=== PATIENT | female | born 1960 | race Caucasian/White ===

== ENCOUNTER 2018-01-24 15:10 | Inpatient (IN) | payer OTHER ==
[~2018-01-24] VITALS: Ht 160 cm; Wt 101.2 kg
--- NOTE | 2018-01-24 15:46 | ED GENERAL ADULT ---
History of Present Illness General Chief Complaint: Lower Extremity Problems Stated Complaint: LFT LEG CLOT SENT FROM US Source: patient, MD call in Exam Limitations: no limitations Allergies Coded Allergies: No Known Allergies (09/03/15) Triage Note: 58F W INTERMITTENT FEVERS, HEADACHES, AND BODY ACHES FOR A FEW DAYS WHICH HAVE RESOLVED, HAD LYME WORK UP WHICH WAS NEGATIVE AND CAME IN TODAY FOR FURTHER WORK UP DUE TO SWELLING AND TIGHTNESS IN LEGS. BILAT U/S SHOWED DVT TO LLE, THOUGH WARMTH AND ERYTHEMA NOTED TO RLE. DENIES DIFF BREATHING Triage Nurses Notes Reviewed? yes Onset: Gradual Duration: day(s): Timing: constant HPI: 58-year-old female with no known past medical history sent in by Dr. Patel for admission. Patient reports that little over a week ago she had isolated fevers to 102 Fahrenheit. Her fevers had self resolved after approximately 24 hours. A few days later she subsequently developed headaches and arthralgias. The headaches have since self resolved but she still has persistent arthralgias that are worse from the knees down. She was seen by an urgent care with Lyme testing that was sent, and she was placed on doxycycline which she has been taking. Lyme testing came back negative. Patient states that Dr. Patel plan to send her for repeat Lyme testing. She has not noticed any insect bites or rashes. Additionally she has had erythema and edema to the bilateral lower extremities with right greater than left. She was sent for an outpatient ultrasound today that showed a left lower extremity DVT. She has no prior history of blood clots , no recent travel or surgeries, no hormone use. She denies chest pain or shortness of breath. (Cindy Melchor) Vital Signs & Intake/Output Vital Signs & Intake/Output Vital Signs Date Time Temp Pulse Resp B/P B/P Pulse O2 O2 Flow FiO2 Mean Ox Delivery Rate 01/247 98.7 92 18 146/69 99 Room Air 01/24 1900 97.4 89 18 124/60 98 Room Air 01/24 1537 97.0 98 18 118/82 97 Room Air Reconcile Medications Albuterol Sulfate (Proair Hfa) 90 MCG HFA.AER.AD 2 PUF INH AD PRN RESP. ( Reported) Atorvastatin Calcium 20 MG TABLET 1 TAB PO DAILY CHOLESTEROL (Reported) Diclofenac Potassium 50 MG TABLET 1 TAB PO BID PAIN/INFLAMMATION (Reported) Doxycycline Hyclate 100 MG CAPSULE 1 CAP PO BID ABX (Reported) Empagliflozin (Jardiance) 25 MG TABLET 1 TAB PO DAILY DM (Reported) Gemfibrozil 600 MG TABLET 1 TAB PO BID CHOLESTEROL (Reported) Ketoconazole 2 % CREAM..G. 1 YASMIN TOP BID PRN SKIN (Reported) apply to affected area(s) Letrozole 2.5 MG TABLET 1 TAB PO DAILY CANCER (Reported) Lisinopril/Hydrochlorothiazide (Lisinopril-Hctz 20-12.5 MG Tab) 20 MG-12.5 MG TABLET 1 TAB PO DAILY BP (Reported) Metformin HCl 850 MG TABLET 1 TAB PO BID DM (Reported) Metoprolol Succinate 50 MG TAB.ER.24H 1 TAB PO BID HEART/BP (Reported) (Paul RAMIREZ,Nura) Past History Travel History Traveled to [place] past 21 day No Medical History Any Pertinent Medical History? none Surgical History Surgical History: non-contributory Psychosocial History What is your primary language Sudanese Tobacco Use: Never used Family History Hx Contributory? No (Cindy Melchor) Review of Systems Review of Systems Constitutional: Reports: see HPI. EENTM: Reports: no symptoms. Respiratory: Reports: no symptoms. Cardiovascular: Reports: no symptoms. GI: Reports: no symptoms. Genitourinary: Reports: no symptoms. Musculoskeletal: Reports: see HPI. Skin: Reports: see HPI. Neurological/Psychological: Reports: no symptoms. Hematologic/Endocrine: Reports: see HPI. Immunologic/Allergic: Reports: no symptoms. All Other Systems: Reviewed and Negative (Cindy Melchor) Physical Exam Physical Exam General Appearance: well developed/nourished, no apparent distress, alert, awake Comments: Gen.: Well-nourished, well-developed, no acute distress. Head: Normocephalic, atraumatic. Eyes: Normal inspection bilaterally Ears: Normal inspection bilaterally Nose: Normal inspection Throat: Normal inspection Neck: Normal inspection, no cervical lymphadenopathy, supple Lungs: clear to auscultation bilaterally, normnal breath sounds Heart: regular rate and rhythm Abdomen: soft and non-tender Extremities: Bilateral lower extremity edema with erythema, right is worse than left, bilateral lower extremities are neurovascularly intact with distal pulses that are audible with Doppler Neurologic: alert and oriented x3, steady gait Skin: warm and dry Psychiatric: Normal mood and affect, no apparent delusions or hallucinations, behavior appropriate Core Measures ACS in differential dx? No CVA/TIA Diagnosis: No Sepsis Present: No Sepsis Focused Exam Completed? No (Cindy Melchor) Progress Differential Diagnoses I considered the following diagnoses in my evaluation of the patient: [ Cellulitis versus sepsis versus Lyme] Initial ED EKG: none (Kendra SALDAÑA,Cindy) Plan of Care: Orders Procedure Date/time Status Consistent Carbohydrate 3 01/25 B Active CBC WITHOUT DIFFERENTIAL 01/25 06 Active BASIC ELECTROLYTES PLUS BUN&CR 01/25 06 Active PARTIAL THROMBOPLASTIN TIME 01/25 0100 Active Saline Lock 01/24 2237 Active Pathway - chart 01/24 2237 Active House Staff 01/24 2237 Active Code Status 01/24 2237 Active Patient Data 01/24 193 Active ED Holding Orders 01/24 184 Active Admit to inpatient 01/24 1845 Active Vital Signs 01/24 184 Active Code Status 01/24 1845 Complete LYME TITRE 01/24 1542 Active Intake & Output 01/24 1539 Active BLOOD CULTURE 01/24 1532 Active PARTIAL THROMBOPLASTIN TIME 01/24 1532 Complete PROTHROMBIN TIME 01/24 1532 Complete LACTIC ACID 01/24 1532 Complete COMPREHENSIVE METABOLIC PANEL 01/24 1532 Complete CBC WITHOUT DIFFERENTIAL 01/24 1532 Complete Vital Signs 01/24 UNK Active Intake & Output 01/24 UNK Active FingerStick- Glucose 01/24 UNK Active Current Medications Sig/Mayelin Start time Last Medication Dose Stop Time Status Admin Insulin Aspart 0 TIDAC 01/25 0800 UNVr (NovoLOG) Acetaminophen 650 MG Q6P PRN 01/24 2245 UNVr (Tylenol) Acetaminophen 1,000 MG Q6P PRN 01/24 2245 UNVr (Ofirmev) Melatonin 5 MG AT BEDTIME PRN 01/24 224 UNVr (Melatonin) Polyethylene Glycol 17 GM AT BEDTIME PRN 01/24 224 UNVr (Miralax) Senna/Docusate Sodium 1 TAB AT BEDTIME PRN 01/24 224 UNVr (Senokot S) Ampicillin Sodium/ 3,000 MG Q6 01/24 1545 AC 01/24 Sulbactam Sodium 1854 (Unasyn) Sodium Chloride 100 ML (Normal Saline 0.9%) Doxycycline Hyclate 100 MG BID 01/24 1545 AC 01/24 (Vibramycin) 1855 Heparin Sodium 25,000 UNIT Q24H 01/24 1545 AC 01/24 (Porcine) 185 (Heparin) Sodium Chloride 500 ML Laboratory Tests 01/24/18 1832: Lactic Acid Cancelled 01/24/18 1555: Anion Gap 11, Estimated GFR > 60, BUN/Creatinine Ratio 47.8 H, Glucose 141 H, Lactic Acid 1.3, Calcium 10.2, Total Bilirubin 0.3, AST 17, ALT 49, Alkaline Phosphatase 155 H, Total Protein 7.2, Albumin 3.8, Globulin 3.4, Albumin/ Globulin Ratio 1.1, PT 12.3, INR 1.13, APTT 35, CBC w Diff NO MAN DIFF REQ, RBC 4.72, MCV 85.6, MCH 27.9, MCHC 32.6 L, RDW 14.6 H, MPV 7.5, Gran % 86.9 H, Lymphocytes % 10.5 L, Monocytes % 1.6 L, Eosinophils % 0.8, Basophils % 0.2, Absolute Granulocytes 9.9 H, Absolute Lymphocytes 1.2, Absolute Monocytes 0.2, Absolute Eosinophils 0.1, Absolute Basophils 0, Lyme Disease Antibody Pending Microbiology 01/24 1555 BLOOD: Blood Culture - RECD 01/24 1542 BLOOD: Blood Culture - RECD Outpatient ultrasound 1. Positive below the knee deep venous thrombosis in one of the left posterior tibial veins in the mid calf. No evidence of deep venous thrombosis above the knee. 2. No evidence of deep venous thrombosis in the right lower extremity. Labs show leukocytosis to 11 with a left shift. Discussed with Dr. Patel and will admit to general medicine. Patient started on IV heparin, IV Unasyn, and oral doxy. Dr. Patel would like to continue doxy for now to cover for Lyme. (Cindy Melchor) (Paul RAMIREZ,Nura) Departure Departure Disposition: STILL A PATIENT Condition: Stable Clinical Impression Primary Impression: DVT (deep venous thrombosis) Secondary Impressions: Cellulitis Referrals: Uriel Patel MD (PCP/Family) Departure Forms: Customer Survey General Discharge Information Admission Note Spoke With: Uriel Patel MD Documentation of Exam: Documentation of any treatments & extenuating circumstances including Concerns Regarding Discharge (functional status, medication knowledge or non-compliance, living conditions, etc.) that warrant an admission rather than observation: [IV heparin, IV antibiotics, IV fluids, serial labs, hypercoagulability workup] (Cindy Melchor) PA/WAX PATTERN REPAIRER Co-Sign Statement Statement: ED Attending supervision documentation- x I saw and evaluated the patient. I have also reviewed all the pertinent lab results and diagnostic results. I agree with the findings and the plan of care as documented in the PA's/WAX PATTERN REPAIRER's documentation. At admission patient is hemodynamically stable no acute cardiopulmonary distress. I have reviewed the ED Record and agree with the PA's/WAX PATTERN REPAIRER's documentation. [] Additions or exceptions (if any) to the PAs/WAX PATTERN REPAIRER's note and plan are summarized below: [] (Paul RAMIREZ,Nura) Critical Care Note Critical Care Note Critical Care Time: non-applicable (Cindy Melchor)
[2018-01-24 16:07] LABS: ABSOLUTE BASOPHIL COUNT 0 /CUMM (0.0-0.2); ABSOLUTE EOSINOPHIL COUNT 0.1 /CUMM (0.0-0.7); ABSOLUTE GRANULOCYTE CT 9.9 /CUMM (1.4-6.5); ABSOLUTE LYMPH COUNT 1.2 /CUMM (1.2-3.4); ABSOLUTE MONOCYTE COUNT 0.2 /CUMM (0.10-0.60); BASOPHIL % 0.2 % (0.0-2.0); EOSINOPHIL % 0.8 % (0-5); HEMATOCRIT 40.4 % (37-47); MEAN CORPUSCULAR HGB 27.9 PG (27.0-31.0); MEAN CORPUSCULAR HGB CONC 32.6 G/DL (33.0-37.0); MEAN CORPUSCULAR VOLUME 85.6 FL (81.0-99.0); MEAN PLATELET VOLUME 7.5 FL (7.4-10.4); PLATELET COUNT 573 /CUMM (130-400); RBC DISTRIBUTION WIDTH 14.6 % (11.5-14.5); RED BLOOD CELL CT 4.72 /CUMM (4.20-5.40); WHITE BLOOD CELL COUNT 11.4 /CUMM (4.8-10.8)
[2018-01-24 16:16] LABS: PT 12.3 SEC (9.4-12.5); PTT 35 SEC (25-37)
[2018-01-24 16:21] LABS: GRANULOCYTE % 86.9 % (42.2-75.2)
--- NOTE | 2018-01-24 16:49 | RADIOLOGY REPORT ---
EXAMINATION: XR ANKLE, RIGHT CLINICAL INFORMATION: Cellulitis. Concern for osteomyelitis. COMPARISON: None TECHNIQUE: AP, lateral, and mortise views of the right ankle. FINDINGS: There is diffuse swelling around the ankle. There is no air in the soft tissues. There is no bone abnormality. No focal bone lesion or abnormal periosteal reaction. There is no fracture and no dislocation. Ankle mortise is congruent. There is a plantar calcaneal spur. IMPRESSION: Soft tissue swelling around ankle. There is no osseous abnormality. No radiographic evidence for osteomyelitis.
[2018-01-24] MEDS ORDERED: JARDIANCE25 M1 PO (18:28)
[2018-01-24] MEDS ORDERED: ATORVASTATIN CA20 M1 PO (18:28)
[2018-01-24] MEDS ORDERED: LETROZOLE2.5 M1 PO (18:28)
[2018-01-24] MEDS ORDERED: DOXYCYCLINE HY100 M2 PO (18:29)
[2018-01-24] MEDS ORDERED: GEMFIBROZIL600 M1 PO (18:29)
[2018-01-24] MEDS ORDERED: METFORMIN HCL850 M1 PO (18:29)
[2018-01-24] MEDS ORDERED: LISINOPRIL-HCT1 EACH PO (18:29)
[2018-01-24] MEDS ORDERED: DICLOFENAC POTA50 M1 PO (18:30)
[2018-01-24] MEDS ORDERED: METOPROLOL SUCC50 M2 PO (18:32)
[2018-01-24] MEDS ORDERED: KETOCONAZOLE15 GM TOP (18:34)
[2018-01-24] MEDS ORDERED: PROAIR HFA8.5 GM INH (18:35)
--- NOTE | 2018-01-24 19:57 | History & Physical ---
Hernan Mac 01[birth year]181956: General Information and HPI MD Statement: I have seen and personally examined HERMILA MOON and documented this H&P. The patient is a 58 year old F who presented with a patient stated chief complaint of [tightness in legs]. Source of Information: patient Exam Limitations: no limitations History of Present Illness: 58 year old female with history of diabetes, hypertension, hyperlipidemia, breast cancer in 2013 status post lumpectomy, radiation and chemotherapy, presents with 2 weeks of worsening tightness in her legs. 2 weeks ago Monday she noticed a fever associated with a headache, chills, sweats and one episode of watery vomiting. This was shortly followed by swelling and pain in her wrists and knees. The swelling began to involve both of her lower extremities, along with redness and warmth in her right lower extremity. She sought treatment and was given doxycycline and had Lyme serology tested. She presents today after seeing Dr. Patel. The patient has had weakness with difficulty walking do to the tightness in her legs, but denies numbness or tingling in her feet. She denied chest pain, shortness of breath, unexplained weight loss, abdominal pain, hematuria, dysuria. Allergies/Medications Allergies: Coded Allergies: No Known Allergies (09/03/15) Home Med list Albuterol Sulfate (Proair Hfa) 90 MCG HFA.AER.AD 2 PUF INH AD PRN RESP. ( Reported) Atorvastatin Calcium 20 MG TABLET 1 TAB PO DAILY CHOLESTEROL (Reported) Diclofenac Potassium 50 MG TABLET 1 TAB PO BID PAIN/INFLAMMATION (Reported) Doxycycline Hyclate 100 MG CAPSULE 1 CAP PO BID ABX (Reported) Empagliflozin (Jardiance) 25 MG TABLET 1 TAB PO DAILY DM (Reported) Gemfibrozil 600 MG TABLET 1 TAB PO BID CHOLESTEROL (Reported) Ketoconazole 2 % CREAM..G. 1 YASMIN TOP BID PRN SKIN (Reported) apply to affected area(s) Letrozole 2.5 MG TABLET 1 TAB PO DAILY CANCER (Reported) Lisinopril/Hydrochlorothiazide (Lisinopril-Hctz 20-12.5 MG Tab) 20 MG-12.5 MG TABLET 1 TAB PO DAILY BP (Reported) Metformin HCl 850 MG TABLET 1 TAB PO BID DM (Reported) Metoprolol Succinate 50 MG TAB.ER.24H 1 TAB PO BID HEART/BP (Reported) Past History Travel History Traveled to [place] past 21 day No Medical History Cardiovascular: hypertension, hyperlipidemia Endocrine: diabetes Cancer(s): breast cancer Surgical History Surgical History: lumpectomy Review of Systems Review of Systems Constitutional: Reports: chills, diaphoresis, fever. Denies: unexplained weight loss. Cardiovascular: Reports: peripheral edema. Denies: chest pain, orthopena, palpitations. Respiratory: Denies: cough, hemoptysis, short of breath, wheezing. GI: Denies: abdominal pain, diarrhea, nausea, bloody stool. Musculoskeletal: Reports: joint pain, joint swelling. Exam & Diagnostic Data Last 24 Hrs of Vital Signs/I&O Vital Signs Date Time Temp Pulse Resp B/P B/P Pulse O2 O2 Flow FiO2 Mean Ox Delivery Rate 01/24 2137 98.7 92 18 146/69 99 Room Air 01/24 1900 97.4 89 18 124/60 98 Room Air 01/24 1537 97.0 98 18 118/82 97 Room Air Intake & Output 01/25 0800 01/25 0000 01/24 1600 Intake Total Output Total Balance Patient 101.151 kg 101.151 kg 102.058 kg Weight Weight Bed scale Measurement Method Physical Exam General Appearance Alert, Oriented X3, Cooperative, No Acute Distress HEENT Atraumatic, PERRLA, EOMI, Mucous Membr. moist/pink Neck Supple, No JVD Cardiovascular Regular Rate, Normal S1, Normal S2, No Murmurs Lungs Clear to Auscultation, Normal Air Movement Abdomen Normal Bowel Sounds, Soft, No Tenderness Neurological Normal Speech, Strength at 5/5 X4 Ext, Normal Tone, Sensation Intact Extremities No Clubbing, No Cyanosis Last 24 Hrs of Labs/Ear[place]: Laboratory Tests 01/25/18 0107: APTT Pending 01/24/18 1832: Lactic Acid Cancelled 01/24/18 1555: Anion Gap 11, Estimated GFR > 60, BUN/Creatinine Ratio 47.8 H, Glucose 141 H, Lactic Acid 1.3, Calcium 10.2, Total Bilirubin 0.3, AST 17, ALT 49, Alkaline Phosphatase 155 H, Total Protein 7.2, Albumin 3.8, Globulin 3.4, Albumin/ Globulin Ratio 1.1, PT 12.3, INR 1.13, APTT 35, CBC w Diff NO MAN DIFF REQ, RBC 4.72, MCV 85.6, MCH 27.9, MCHC 32.6 L, RDW 14.6 H, MPV 7.5, Gran % 86.9 H, Lymphocytes % 10.5 L, Monocytes % 1.6 L, Eosinophils % 0.8, Basophils % 0.2, Absolute Granulocytes 9.9 H, Absolute Lymphocytes 1.2, Absolute Monocytes 0.2, Absolute Eosinophils 0.1, Absolute Basophils 0, Lyme Disease Antibody Pending Microbiology 01/24 1555 BLOOD: Blood Culture - RECD 01/24 1542 BLOOD: Blood Culture - RECD Assessment/Plan Assessment: 58-year-old diabetic female presenting with bilateral lower extremity edema, erythema and tenderness, right greater than left, with fever, found to have DVT in the left lower extremity on doppler ultrasound done as outpatient. CBC showed leukocytosis with left-shift and thrombocytosis. X-ray R ankle did not show evidence of osteomyelitis. Lower extremity ultrasound Doppler showed below the knee deep venous thrombosis in one of the left posterior tibial veins in the mid calf, without evidence of deep venous thrombosis above the knee. The right knee showed no evidence of DVT. Problems: 1. DVT involving the left lower extremity 2. Cellulitis of the right lower extremity 3. Diabetes mellitus Plan: Full code As Ranked By This Provider Problem List: 1. DVT (deep venous thrombosis) 2. Cellulitis Core Measures/Misc (01/22) Acute Coronary Syndrome ACS Diagnosis: No Congestive Heart Failure Congestive Heart Failure Diagnosis No Cerebrovascular Accident CVA/TIA Diagnosis: No VTE (View Protocol) VTE Risk Factors Obesity No Mechanical VTE Prophylaxis d/t Medical Contraindication No VTE Pharm Prophylaxis d/t NA PharmProphylax ordered Comment: Patient has DVT LLE Sepsis (View protocol) Sepsis Present: No If YES complete Sepsis Event Note If YES complete Sepsis Event Note Amanda RAMIREZ,[facility] 01/24/181956: Core Measures/Misc (01/22) Sepsis (View protocol) If YES complete Sepsis Event Note If YES complete Sepsis Event Note Attending MD Review Statement Attending Statement Attending MD Statement: examined this patient, discuss w/resident/PA/EDITOR MAP, agreed w/resident/PA/EDITOR MAP, discussed with family, reviewed EMR data (avail), discussed with nursing, discussed with case mgmt, reviewed images, amended to note Attending Assessment/Plan: This is a 58-year-old lady with recent history of very high fever up to 103, polyarthritis. She also had lower extremity edema and redness with evidence of significant cellulitis. She had evidence of polyarthritis and patient was given tramadol, doxycycline. She clinically feels better. However she continued to have on-and-off occasional confusion, high-grade temperature, leg edema and swelling and tenderness. She was sent in to the hospital by me for evaluation. She has a history of diabetes, hypertension, prior history of significant strep pneumo infection, prior history of empyema in 2005. Recently she has had diagnosis of breast cancer stage Ia. She is now on hormonal therapy. Estrogen receptor positive. Patient is on anastrozole. She has had a lower extremity Doppler which was done today which showed that she has a DVT on the left posterior tibial vein. And she had elevated white count and left shift. There was also soft tissue swelling around the ankle noted with no evidence suggestive of osteomyelitis. Due to the fact that she has a new DVT , ongoing cellulitis, anemia, dehydration upon admission she is now being admitted. Pupils react extraocular movements intact Chest decreased breath sounds heart S1-S2 was heard abdominal exam obese nontender extremity bilateral lower extremity mild edema, BUN 43, creatinine normal no significant anion gap white count elevated with a left shift with 6% bands Lower extremity Doppler as noted above Blood cultures pending ESR today was 115 A rheumatoid panel was unremarkable C-reactive protein was elevated Recent tick panel was unremarkable. Platelets are elevated with 573. IMPRESSION This is a lady with history of diabetes, hypertension, morbid obesity with recent weight loss, stage I breast cancer estrogen receptor positive on anastrozole, prior history of pneumonia and empyema in 2005 now stable, recent significant sepsis with fever 104 now with partial response to by mouth antibiotics with Significant cellulitis of both lower extremity more in the right than the left with leukocytosis, bandemia. Patient failed outpatient by mouth medications and needs admission Lower extremity DVT which is acute in the left lower extremity. Patient is on anastrozole which may be the precipitating factor. She needs to be started on intravenous anticoagulation and subsequently will decide on normal anticoagulants Reactive thrombocytosis needs follow-up Diabetes on oral hypoglycemic Mild dehydration with elevated BUN now on IV fluids Recent polyarthritis which seems to be better. She may have had reactive arthritis. No evidence suggestive of tick borne illness but patient did seem to have response to doxycycline. RECOMMENDATION Intravenous Unasyn Keep the leg elevated Bedrest until tomorrow Intravenous heparin for DVT Check C BC, CMP in the morning. If her BUN/creatinine is stabilized we will do a CT chest with IV contrast with pulmonary embolism protocol to rule out PE. Hold metformin, continue Jardiance, fingerstick glucose with sliding scale insulin pre-meals. Tylenol for pain Hold nonsteroidals [place] continue other by mouth medications except letrozole and metformin We will follow closely Wali Cannon MD 01/24/183: Core Measures/Misc (01/22) Sepsis (View protocol) If YES complete Sepsis Event Note If YES complete Sepsis Event Note Resident Review Statement Resident Statement: examined this patient, discussed with athletic training internship, agreed with athletic training internship, reviewed EMR data (avail), amended to note Other Findings: The patient is a 58-year-old obese female with past medical history significant for diabetes, hypertension, breast cancer status post left mastectomy (2015) currently on anastrozole, empyema, history of pneumonia, recently treated for presumed Lyme disease due to significant polyarthritis currently on doxycycline now presenting with lower extremity edema and redness. Patient reports fever, headaches, body aches over the past week. States that she has been having fever with max temperature of 102 2 days prior to this admission. Also reports significant headache, chills, joint swelling in her hands and wrists knees and ankles. Reports that she started doxycycline approximately 9 days prior to admission. Reports that she saw her prior care physician today for follow-up and was sent in by her PCP due to increased bilateral lower extremity swelling and pain. Patient had bilateral ultrasound which showed DVT in her left lower extremity. Patient in the ED was started on an IV heparin drip, received 1 L normal saline bolus and IV Unasyn 3 g. Doxycycline 100 mg was continued for presumed lyme. Patient reports increased swelling in her lower extremities along with redness and warmth worse on the right compared to left. Reports difficulty walking due to a feeling of "tightness" in her legs. Patient denies any trauma, cuts, but bites to the area. Patient denies nausea, vomiting, abdominal pain, dysuria/ hematuria, constipation/diarrhea shortness of breath, chest pain, palpitations. Reports fever, chills and sweats. Patient denies any history of blood clots in the past. Patient is currently on letrozole for ER positive breast cancer status post lumpectomy in 2016 and 6 weeks of radiation therapy. Patient was previously on anastrozole however that was discontinued due to significant arthritic pain. Past medical history: As above Past surgical history: As above Social history: Patient denies smoking Medications: Proventil, Atorvastatin, doxycycline, sardines, gemfibrozil, letrozole, lisinoprilhydrochlorothiazide, metformin, metoprolol Allergies: No known drug allergies, reports seasonal allergies On admission: Vitals: MAXIMUM TEMPERATURE 97.4, heart rate 89-98, respiration rate 18, blood pressure 124/60, saturating at 97-90% on room air Labs: WBC of 11.4 with 86.9% granulocytes, H&H of 13.2 and 40.4, platelet count 573, lactic acid of 1.20, alkaline phosphatase 155 with normal AST and ALT, Lyme antibody pending Patient is a 58-year-old obese female with past medical history significant for breast cancer status post lumpectomy and radiation currently on hormonal therapy with letrozole, recently started on doxycycline for Lyme disease due to significant polyarthritis presenting this admission with bilateral lower extremity edema, warmth and erythema greater on the right side. Ultrasound showed a left lower extremity DVT. Problems: Left lower extremity DVT Lower extremity cellulitis Presumed Lyme disease on doxycycline Polyarthritis due to infection versus medication induced Thrombocytosis History of diabetes, hypertension, breast cancer on hormonal therapy Plan: Admitted to general med IV heparin drip started in the ED Monitor H&H and platelet Monitor vitals and WBC Continue IV Unasyn 3 mg every 6 hours Keep legs elevated CTA chest tomorrow pending repeat BUN and creatinine NovoLog 3 times a day before meals/daily at bedtime with Accu-Cheks Hold oral hypoglycemic agents We'll hold NSAIDs and as patient's blood pressure is normal we'll hold off on antihypertensives and setting of infection Follow-up blood cultures Continue doxycycline 100 mg BID Lyme antibody pending Pain control with PO/IV Tylenol Melatonin when necessary for sleep Code: Full code Diet: Consistent carb DVT prophylaxis: IV heparin drip
[2018-01-25] VITALS: BP 120/64
[2018-01-25 01:41] LABS: PTT 69 SEC (25-37)
[2018-01-25 06:00] VITALS: BP 100/68
--- NOTE | 2018-01-25 07:03 | PN- Housestaff ---
Ronnie Gutiérrez 01/25/18 0703: Subjective Follow-up For: Left Lower Extremity DVT Right Lower Extremity Cellulitis S/P Lumpectomy Breast CA Subjective: Pt seen and examined at bedside this morning. She is lying in bed with heparin drip and IV antibiotics. She denies any acute complaints of pain, nausea, vomiting, fevers, chills, cough or shortness of breath. Patient has right lower extremity marked with pen at the site of erythema. Review of Systems Constitutional: Denies: see HPI. Objective Last 24 Hrs of Vital Signs/I&O Vital Signs Date Time Temp Pulse Resp B/P B/P Pulse O2 O2 Flow FiO2 Mean Ox Delivery Rate 01/25 0600 98.5 76 20 100/68 96 Room Air 01/25 0000 Room Air 01/25 0000 97.9 93 20 120/64 95 Room Air 01/24 2137 98.7 92 18 146/69 99 Room Air 01/24 1900 97.4 89 18 124/60 98 Room Air 01/24 1537 97.0 98 18 118/82 97 Room Air Intake & Output 01/25 1600 01/25 0800 01/25 0000 Intake Total 650 Output Total Balance 650 Intake, IV 350 Intake, Oral 300 Patient 223 lb 223 lb Weight Weight Bed scale Measurement Method Physical Exam General Appearance: Alert, Oriented X3, Cooperative Skin: RIght lower extremity erythema HEENT: Mucous Membr. moist/pink Neck: Supple Cardiovascular: Normal S1, Normal S2 Lungs: Clear to Auscultation, Normal Air Movement Abdomen: Normal Bowel Sounds, Soft, No Tenderness Neurological: Normal Speech, Strength at 5/5 X4 Ext Extremities: Trace edema in right lower extremity > left Vascular: Normal Pulses Current Medications: Current Medications Sig/Mayelin Start time Last Medication Dose Route Stop Time Status Admin Acetaminophen 650 MG Q6P PRN 01/24 2245 AC 01/25 PO 0133 Acetaminophen 1,000 MG Q6P PRN 01/24 224 AC IV Albuterol Sulfate 2 PUF Q6H PRN 01/25 0500 AC INH Ampicillin Sodium/ 0 .STK-MED ONE 01/24 1849 DC Sulbactam Sodium .ROUTE Ampicillin Sodium/ 3,000 MG Q6 01/24 1545 AC 01/25 Sulbactam Sodium IV 0620 Sodium Chloride 100 ML Atorvastatin Calcium 20 MG DAILY 01/25 09 AC PO Doxycycline Hyclate 0 .STK-MED ONE 01/24 1848 DC PO Doxycycline Hyclate 100 MG BID 01/24 1545 AC 01/24 PO 1855 Gemfibrozil 600 MG BID 01/25 0900 AC PO Heparin Sodium 25,000 UNIT Q24H 01/24 1545 AC 01/24 (Porcine) IV 1854 Sodium Chloride 500 ML Heparin Sodium 5,000 UNIT ONCE ONE 01/24 1530 DC 01/24 (Porcine) IV 01/24 1531 1854 Influenza Virus 0 .STK-MED ONE 01/25 0631 DC Vaccine IM Influenza Virus 0.5 ML ONCE ONE 01/25 0130 DC 01/25 Vaccine IM 01/25 0131 0640 Insulin Aspart 0 TIDAC 01/25 0800 AC SC Letrozole 2.5 MG DAILY 01/25 0900 CAN PO Melatonin 5 MG AT BEDTIME PRN 01/24 2245 AC 01/25 PO 0132 Non-Formulary 0 SEE ADMIN CRITERIA 01/25 0500 CAN Medication ANY Polyethylene Glycol 17 GM AT BEDTIME PRN 01/24 2245 AC PO Ramelteon 0 .STK-MED ONE 01/25 0427 DC PO Ramelteon 8 MG AT BEDTIME 01/25 0415 AC 01/25 PO 0425 Senna/Docusate Sodium 1 TAB AT BEDTIME PRN 01/24 2245 AC PO Sodium Chloride 1,000 ML BOLUS ONE 01/24 1530 DC 01/24 IV 01/24 1629 1854 Last 24 Hrs of Lab/Earle Results Last 24 Hrs of Labs/Mics: Laboratory Tests 01/25/18 0628: Sodium Pending, Potassium Pending, Chloride Pending, Carbon Dioxide Pending, Anion Gap Pending, BUN Pending, Creatinine Pending, BUN/Creatinine Ratio Pending , CBC w Diff Pending, WBC Pending, RBC Pending, Hgb Pending, Hct Pending, MCV Pending, MCH Pending, MCHC Pending, RDW Pending, Plt Count Pending, MPV Pending 01/25/18 0107: APTT 69 H 01/24/18 1832: Lactic Acid Cancelled 01/24/18 1555: Anion Gap 11, Estimated GFR > 60, BUN/Creatinine Ratio 47.8 H, Glucose 141 H, Lactic Acid 1.3, Calcium 10.2, Total Bilirubin 0.3, AST 17, ALT 49, Alkaline Phosphatase 155 H, Total Protein 7.2, Albumin 3.8, Globulin 3.4, Albumin/ Globulin Ratio 1.1, PT 12.3, INR 1.13, APTT 35, CBC w Diff NO MAN DIFF REQ, RBC 4.72, MCV 85.6, MCH 27.9, MCHC 32.6 L, RDW 14.6 H, MPV 7.5, Gran % 86.9 H, Lymphocytes % 10.5 L, Monocytes % 1.6 L, Eosinophils % 0.8, Basophils % 0.2, Absolute Granulocytes 9.9 H, Absolute Lymphocytes 1.2, Absolute Monocytes 0.2, Absolute Eosinophils 0.1, Absolute Basophils 0, Lyme Disease Antibody Pending Microbiology 01/24 1555 BLOOD: Blood Culture - RECD 01/24 154 BLOOD: Blood Culture - RECD Assessment/Plan Assessment: 58 year old female with PMH of DM (Jardiance, metformin), HTN, morbid obesity wtih recent weight loss, stage 1 breast cancer ER positive on Letrozole, status post lumpectomy of left breast two years ago 2015, prior history of pneumonia/ empyema in 2005 now stable. X-ray R ankle did not show evidence of osteomyelitis. Lower extremity ultrasound Doppler showed below the knee deep venous thrombosis in one of the left posterior tibial veins in the mid calf, without evidence of deep venous thrombosis above the knee. The right knee showed no evidence of DVT. Emergency Department: Vitals: 97.0, 98, 18, 118/82, 97% Labs: Leukocytosis (11.4) with left-shit + thrombocytosis IV Heparin Drip, 1 L NS bolus + IV Unasin 3 g Doxycycline 100mg continued for presumed lyme PROBLEM LIST: 1. Left Lower Extremity DVT 2. Cellulitis of Right Lower Extremity 3. Breast Cancer s/p lumpectomy 2016 4. Suspected Lyme Disease 5. Hyperlipidemia 6. Diabetes Mellitus Left Lower Extremity DVT * IV heparin drip * BUN/Cr stable --> Chest CT PE protocol Cellulitis of Right Lower Extremity * Continue IV Unasyn * Monitor CBC/fevers/leukocytosis Breast Cancer s/p lumpectomy 2015 * Continue Letrozole Suspected Lyme Disease * Doxycycline 100mg BID Hyperlipidemia * Continue Gemfibrozil 600mg BID Code Status: Full Code DVT PPx: IV Heparin Diet: Consistent Carbohydrate 3 Problem List: 1. Cellulitis 2. DVT (deep venous thrombosis) Pain Ratin Pain Location: Right lower extremity Pain Goal: Pain 4 or less Pain Plan: as per pain pathway Tomorrow's Labs & Rationales: cbc mark Patel MD,[facility] 01/25/18 1411: Attending MD Review Statement Attending Statement Attending MD Statement: examined this patient, discuss w/resident/PA/LINING CLEANER, agreed w/resident/PA/LINING CLEANER, discussed with family, reviewed EMR data (avail), discussed with nursing, discussed with case mgmt, reviewed images, amended to note Attending Assessment/Plan: Improving S/p CTA results are pending Pupils react extraocular movements intact Chest decreased breath sounds heart S1-S2 was heard abdominal exam obese nontender extremity bilateral lower extremity mild edema, IMPRESSION This is a lady with history of diabetes, hypertension, morbid obesity with recent weight loss, stage I breast cancer estrogen receptor positive on anastrozole, prior history of pneumonia and empyema in 2005 now stable, recent significant sepsis with fever 104 now with partial response to by mouth antibiotics with * Significant cellulitis of both lower extremity more in the right than the left with leukocytosis, bandemia. Patient failed outpatient/ improving * Lower extremity DVT which is acute in the left lower extremity. Patient is on anastrozole which may be the precipitating factor. Will consider noac in am * Reactive thrombocytosis needs follow-up/ improving * Diabetes on oral hypoglycemic * Resolved - Mild dehydration with elevated BUN now on IV fluids * Recent polyarthritis which seems to be better. She may have had reactive arthritis. No evidence suggestive of tick borne illness but patient did seem to have response to doxycycline. RECOMMENDATION Intravenous Unasyn Keep the leg elevated Bedrest till this pm CTA pending - call if if any acute findings are present Intravenous heparin for DVT Hold metformin, continue Jardiance, fingerstick glucose with sliding scale insulin pre-meals. Tylenol for pain Hold nonsteroidals continue other by mouth medications except letrozole and metformin We will follow closely
[2018-01-25 09:23] LABS: ABSOLUTE BASOPHIL COUNT 0 /CUMM (0.0-0.2); ABSOLUTE EOSINOPHIL COUNT 0.1 /CUMM (0.0-0.7); ABSOLUTE GRANULOCYTE CT 7.7 /CUMM (1.4-6.5); ABSOLUTE MONOCYTE COUNT 0.5 /CUMM (0.10-0.60); MEAN CORPUSCULAR HGB 27.7 PG (27.0-31.0); MEAN PLATELET VOLUME 7.7 FL (7.4-10.4)
[2018-01-25 09:43] LABS: ABSOLUTE LYMPH COUNT 1.5 /CUMM (1.2-3.4); BASOPHIL % 0.2 % (0.0-2.0); GRANULOCYTE % 78.4 % (42.2-75.2); MEAN CORPUSCULAR HGB CONC 32.4 G/DL (33.0-37.0); MEAN CORPUSCULAR VOLUME 85.4 FL (81.0-99.0); PLATELET COUNT 477 /CUMM (130-400); RBC DISTRIBUTION WIDTH 14.4 % (11.5-14.5); RED BLOOD CELL CT 4.09 /CUMM (4.20-5.40); WHITE BLOOD CELL COUNT 9.8 /CUMM (4.8-10.8)
[2018-01-25 09:55] LABS: HEMATOCRIT 34.9 % (37-47)
[2018-01-25 14:20] VITALS: BP 122/70
--- NOTE | 2018-01-25 14:58 | CT SCAN REPORT ---
EXAMINATION: CT ANGIOGRAM OF THE CHEST WITH CONTRAST (CT PULMONARY ANGIOGRAM FOR PE) CLINICAL INFORMATION: Leg swelling. Deep vein thrombosis in posterior tibial vein of left calf. Evaluate for pulmonary embolism. COMPARISON: CXR from 01/24/2018 TECHNIQUE: Prior to contrast administration, noncontrast localization images were obtained. Subsequently, multidetector volumetric imaging was performed from the thoracic inlet to below the diaphragms following the administration of 80 mL Optiray 350 intravenous contrast. No contrast reaction reported. Sagittal, coronal, and MIP oblique sagittal reformatted images were obtained on the CT workstation, uploaded to PACS, and reviewed. DLP: Total exam dose-length product 541 mGy-cm FINDINGS: QUALITY OF STUDY/CONTRAST BOLUS: Satisfactory. PULMONARY ARTERIES: The pulmonary arteries are normal in size. No embolic filling defects are identified within the main, lobar or segmental vessels. THORACIC AORTA: Normal. No acute intramural hematoma, aneurysm or dissection. LUNGS AND PLEURA: Diffuse, mild thickening of bronchial noriega in both lungs. No pulmonary edema, mass, consolidation or pleural effusion. 0.2 cm subpleural nodule in the medial right lung apex (image 89, series 2). 0.2 cm nodule of right upper lobe adjacent to the minor fissure (image 220, series 4). 0.2 cm nodules in lateral right lower lobe (image 307, series 2) and within left upper lobe (image 97, series 2). CARDIOVASCULAR: The heart size is normal. Mild atherosclerotic calcification of coronary arteries. No pericardial effusion. MEDIASTINUM: The esophagus has normal wall thickness. The visualized portion of the thyroid gland is unremarkable. No mediastinal mass. LYMPHATICS: No pathologic sized axillary, hilar or mediastinal lymph nodes. UPPER ABDOMEN: Unremarkable. OSSEOUS STRUCTURES: Multilevel discovertebral degenerative changes of thoracic spine. No suspicious osseous lesion. Surgical clips in upper outer quadrant of left breast as well as separate area of fat necrosis the subareolar region of left breast, status post lumpectomy. IMPRESSION: - No evidence of pulmonary embolism. - Mild thickening of bronchial noriega in both lungs is nonspecific. Query if there is history of cigarette smoking, asthma or bronchitis. No pneumonia. - Small pulmonary nodules of < 0.3 cm size. Follow-up is not required in a low-risk patient. However, follow-up may be considered in 12 months for a high risk patient.
[2018-01-25 15:16] LABS: PTT 30 SEC (25-37)
[2018-01-25 22:33] VITALS: BP 144/74
[2018-01-25 22:43] LABS: PTT 94 SEC (25-37)
--- NOTE | 2018-01-26 01:19 | Event Note ---
See Addendum Event Note Event Note: S-Notified by nursing that the patient was complaining of a continued, throbbing pain to her lower left extremity localized around the area of the lateral malleolus, not controlled by Tylenol, nor a one-time dose of Tramadol (which the patient had also been prescribed as an outpatient). B-I admitted this patient yesterday for DVT of the LLE and cellulitis worse in the RLE--she had also had a polyarthritis for the preceding two weeks. This evening she reports that she had been actively rotating her ankles so as to keep her legs moving while in bed. She is on Heparin IV to treat the DVT. A-The swelling in her LLE is improved from yesterday, DP and PT pulses are intact bilaterally. Her RLE is likewise less swollen and less erythematous compared to yesterday. She has minimal pain with plantar-flexion or dorsiflexion of the LLE and sensation is intact. I feel that this is either a continuation of the polyarthritis the patient had prior to presentation, or continued soreness from the acute DVT on the left. R-Apply a warm compress to the affected area. Added one-time dose of Percocet for better pain management.
[2018-01-26 05:27] LABS: ABSOLUTE BASOPHIL COUNT 0 /CUMM (0.0-0.2); ABSOLUTE EOSINOPHIL COUNT 0.1 /CUMM (0.0-0.7); ABSOLUTE GRANULOCYTE CT 6.8 /CUMM (1.4-6.5); ABSOLUTE LYMPH COUNT 1.2 /CUMM (1.2-3.4); ABSOLUTE MONOCYTE COUNT 0.5 /CUMM (0.10-0.60); BASOPHIL % 0.4 % (0.0-2.0); EOSINOPHIL % 0.9 % (0-5); GRANULOCYTE % 79.1 % (42.2-75.2); HEMATOCRIT 33.7 % (37-47); MEAN CORPUSCULAR HGB 27.8 PG (27.0-31.0); MEAN CORPUSCULAR HGB CONC 32.6 G/DL (33.0-37.0); MEAN CORPUSCULAR VOLUME 85.2 FL (81.0-99.0); MEAN PLATELET VOLUME 7.1 FL (7.4-10.4); PLATELET COUNT 449 /CUMM (130-400); RBC DISTRIBUTION WIDTH 13.7 % (11.5-14.5); RED BLOOD CELL CT 3.96 /CUMM (4.20-5.40); WHITE BLOOD CELL COUNT 8.6 /CUMM (4.8-10.8)
[2018-01-26 05:35] LABS: PTT 56 SEC (25-37)
[2018-01-26 06:55] VITALS: BP 110/70
--- NOTE | 2018-01-26 07:02 | PN- Housestaff ---
Subjective Follow-up For: Right Lower Extremity Cellulitis Left Lower Extremity DVT Suspected Lyme Disease - Reactive Arthritis S/P Lumpectomy Breast CA Subjective: Pt seen and examined at bedside this morning. She had pain in the left lower extremity overnight. Patient claims she has been moving her ankles in bed for exercise and that may have exacerbated the situation. Overnight team attempted tramadol which did not help. Patient claims the one time percocet helped her pain. Otherwise, denies fevers, chills, nausea, vomiting, shortness of breath or chest pain. Review of Systems Constitutional: Denies: see HPI. Objective Last 24 Hrs of Vital Signs/I&O Vital Signs Date Time Temp Pulse Resp B/P B/P Pulse O2 O2 Flow FiO2 Mean Ox Delivery Rate 01/26 0655 98.6 79 20 110/70 98 Room Air 01/25 2233 98.9 91 20 144/74 98 Room Air 01/25 1420 98.5 95 20 122/70 93 Room Air Intake & Output 01/26 1600 01/26 0800 01/26 0000 Intake Total 800.8 981.2 Output Total Balance 800.8 981.2 Intake, IV 440.8 381.2 Intake, Oral 360 600 Number 1 Bowel Movements Patient 227 lb Weight Weight Standing Scale Measurement Method Physical Exam General Appearance: Alert, Oriented X3, Cooperative, No Acute Distress Skin: right lower extremity erythema marked with pen Skin Temp/Moisture Exam: Warm/Dry HEENT: Mucous Membr. moist/pink Neck: Supple Cardiovascular: Normal S1, Normal S2 Lungs: Clear to Auscultation, Normal Air Movement Abdomen: Normal Bowel Sounds, Soft, No Tenderness Neurological: Normal Speech Extremities: Right lower extremity edema > left Vascular: Normal Pulses Current Medications: Current Medications Sig/Mayelin Start time Last Medication Dose Route Stop Time Status Admin Acetaminophen 650 MG Q6P PRN 01/245 AC 01/25 PO 2254 Acetaminophen 1,000 MG Q6P PRN 01/24 224 AC IV Albuterol Sulfate 2 PUF Q6H PRN 01/25 0500 AC INH Ampicillin Sodium/ 3,000 MG Q6 01/24 1545 AC 01/26 Sulbactam Sodium IV 0517 Sodium Chloride 100 ML Atorvastatin Calcium 20 MG DAILY 01/25 0900 AC 01/25 PO 09 Doxycycline Hyclate 100 MG BID 01/24 1545 AC 01/25 PO 2028 Gemfibrozil 600 MG BID 01/25 0900 AC 01/25 PO 2028 Heparin Sodium 0 .STK-MED ONE 01/26 0656 DC (Porcine) .ROUTE Heparin Sodium 4,120 UNIT ONCE ONE 01/26 0625 DC 01/26 (Porcine) IV 01/26 06 0654 Heparin Sodium 0 .STK-MED ONE 01/25 1633 DC (Porcine) .ROUTE Heparin Sodium 7,575 UNIT ONCE ONE 01/25 1615 DC 01/25 (Porcine) IV 01/25 1616 1636 Heparin Sodium 25,000 UNIT Q24H 01/24 1545 AC 01/26 (Porcine) IV 0657 Sodium Chloride 500 ML Insulin Aspart 0 TIDAC 01/25 0800 AC 01/25 SC 1755 Letrozole 2.5 MG DAILY 01/25 09 CAN PO Melatonin 5 MG AT BEDTIME PRN 01/24 2245 AC 01/25 PO 013 Oxycodone/ 1 TAB ONCE ONE 01/26 0130 DC 01/26 Acetaminophen PO 01/26 013 0137 Polyethylene Glycol 17 GM AT BEDTIME PRN 01/24 2245 AC PO Ramelteon 8 MG AT BEDTIME 01/25 0415 AC 01/25 PO 2028 Senna/Docusate Sodium 1 TAB AT BEDTIME PRN 01/24 2245 AC PO Tramadol HCl 50 MG ONCE PRN 01/25 2315 DC 01/25 PO 01/26 0700 2355 Last 24 Hrs of Lab/Earle Results Last 24 Hrs of Labs/Mics: Laboratory Tests 01/26/18 0510: Anion Gap 8, Estimated GFR > 60, BUN/Creatinine Ratio 33.3 H, APTT 56 H, CBC w Diff NO MAN DIFF REQ, RBC 3.96 L, MCV 85.2, MCH 27.8, MCHC 32.6 L, RDW 13.7, MPV 7.1 L, Gran % 79.1 H, Lymphocytes % 14.1 L, Monocytes % 5.5, Eosinophils % 0.9, Basophils % 0.4, Absolute Granulocytes 6.8 H, Absolute Lymphocytes 1.2, Absolute Monocytes 0.5, Absolute Eosinophils 0.1, Absolute Basophils 0 01/25/18 2215: APTT 94 H 01/25/18 1330: APTT 30 Assessment/Plan Assessment: 58 year old female with PMH of DM (Jardiance, metformin), HTN, morbid obesity wtih recent weight loss, stage 1 breast cancer ER positive on Letrozole, status post lumpectomy of left breast two years ago 2015, prior history of pneumonia/ empyema in 2006 now stable. X-ray R ankle did not show evidence of osteomyelitis. Lower extremity ultrasound Doppler showed below the knee deep venous thrombosis in one of the left posterior tibial veins in the mid calf, without evidence of deep venous thrombosis above the knee. The right knee showed no evidence of DVT. CTA: No evidence of pulmonary embolism. - Mild thickening of bronchial noriega in both lungs is nonspecific. Query if there is history of cigarette smoking, asthma or bronchitis. No pneumonia. - Small pulmonary nodules of < 0.3 cm size. Follow-up is not required in a low-risk patient. However, follow-up may be considered in 12 months for a high risk patient. No evidence of pulmonary embolism. - Mild thickening of bronchial noriega in both lungs is nonspecific. Query if there is history of cigarette smoking, asthma or bronchitis. No pneumonia. - Small pulmonary nodules of < 0.3 cm size. Follow-up is not required in a low-risk patient. However, follow-up may be considered in 12 months for a high risk patient. PROBLEM LIST: 1. Left Lower Extremity DVT 2. Cellulitis of Right Lower Extremity 3. Breast Cancer s/p lumpectomy 2015 4. Suspected Lyme Disease 5. Hyperlipidemia 6. Diabetes Mellitus Left Lower Extremity DVT * IV heparin drip continued * CTA: negative for PE Cellulitis of Right Lower Extremity * Continue IV Unasyn Day 2 * Monitor CBC/fevers/leukocytosis Breast Cancer s/p lumpectomy 2015 * Hold Letrozole Suspected Lyme Disease/Reactive Arthritis * Doxycycline 100mg BID * Follow up Lyme Serology - NEGATIVE Hyperlipidemia * Continue Gemfibrozil 600mg BID Diabetes * Continue Jardiance * Finger sticks with ISS Code Status: Full Code DVT PPx: IV Heparin Diet: Consistent Carbohydrate 3 Problem List: 1. Cellulitis 2. DVT (deep venous thrombosis) Pain Ratin Pain Location: Left lower extremity Pain Goal: Pain 4 or less Pain Plan: as per pain pathway Tomorrow's Labs & Rationales: none - stable CBC and BEP
--- NOTE | 2018-01-26 08:26 | Patient Discharge Instructions ---
Discharge Instructions General Discharge Information You were seen/treated for: Right Lower Extremity Cellulitis Left Lower Extremity DVT Special Instructions: Please follow up with your PCP within 1-2 weeks of discharge. Continue oral antibiotics as prescribed: Acute Coronary Syndrome Inclusion Criteria At DC or during hospital stay patient has or had the following: ACS DIAGNOSIS No Discharge Core Measures Meds if any: Prescribed or Continued at Discharge Meds if any: NOT Prescribed or Continued at Discharge Congestive Heart Failure Inclusion Criteria At DC or during hospital stay patient has or had the following: CHF DIAGNOSIS No Discharge Core Measures Meds if any: Prescribed or Continued at Discharge Meds if any: NOT Prescribed or Continued at Discharge Cerebrovascular accident Inclusion Criteria At DC or during hospital stay patient has or had the following: CVA/TIA Diagnosis No Discharge Core Measures Meds if any: Prescribed or Continued at Discharge Meds if any: NOT Prescribed or Continued at Discharge Venous thromboembolism Inclusion Criteria VTE Diagnosis No VTE Type NONE VTE Confirmed by (Test) NONE Discharge Core Measures - Per Current guidelines, there needs to be overlap - treatment for the first 5 days of Warfarin therapy. - If discharged on Warfarin prior to 5 days of - overlap therapy, the patient will need to be - assessed for post discharge needs including - *Post discharge parental anticoagulation - *Warfarin and/or parental anticoagulation education - *Follow up date to check INR post discharge At least 5 days overlap therapy as Inpatient No Meds if any: Prescribed or Continued at Discharge Note: Overlap Therapy is Warfarin and Anticoagulant Meds if any: NOT Prescribed or Continued at Discharge
--- NOTE | 2018-01-26 12:49 | PN- Pulmonary ---
Subjective HPI/Critical Care Issues: Doing well afebrile fatigue wishes to go home Objective Current Medications: Current Medications Sig/Mayelin Start time Last Medication Dose Route Stop Time Status Admin Acetaminophen 650 MG Q6P PRN 01/24 2245 AC 01/26 PO 09 Acetaminophen 1,000 MG Q6P PRN 01/24 224 AC IV Albuterol Sulfate 2 PUF Q6H PRN 01/25 0500 AC INH Ampicillin Sodium/ 3,000 MG Q6 01/24 1545 AC 01/26 Sulbactam Sodium IV 0517 Sodium Chloride 100 ML Atorvastatin Calcium 20 MG DAILY 01/25 09 AC 01/26 PO 0937 Doxycycline Hyclate 100 MG BID 01/24 1545 AC 01/26 PO 09 Gemfibrozil 600 MG BID 01/25 09 AC 01/26 PO 09 Heparin Sodium 0 .STK-MED ONE 01/26 0656 DC (Porcine) .ROUTE Heparin Sodium 4,120 UNIT ONCE ONE 01/26 0625 DC 01/26 (Porcine) IV 01/26 0626 0654 Heparin Sodium 0 .STK-MED ONE 01/25 1633 DC (Porcine) .ROUTE Heparin Sodium 7,575 UNIT ONCE ONE 01/25 1615 DC 01/25 (Porcine) IV 01/25 1616 1636 Heparin Sodium 25,000 UNIT Q24H 01/24 154 AC 01/26 (Porcine) IV 0657 Sodium Chloride 500 ML Insulin Aspart 0 TIDAC 01/25 0800 AC 01/25 SC 1755 Melatonin 5 MG AT BEDTIME PRN 01/24 2245 AC 01/25 PO 0132 Oxycodone/ 1 TAB ONCE ONE 01/26 0130 DC 01/26 Acetaminophen PO 01/26 0131 0137 Polyethylene Glycol 17 GM AT BEDTIME PRN 01/24 224 AC PO Ramelteon 8 MG AT BEDTIME 01/25 0415 AC 01/25 PO 2029 Senna/Docusate Sodium 1 TAB AT BEDTIME PRN 01/24 224 AC PO Tramadol HCl 50 MG ONCE PRN 01/25 2315 DC 01/25 PO 01/26 0700 2355 Vital Signs & I&O Last 24 Hrs of Vitals and I&O: Vital Signs Date Time Temp Pulse Resp B/P B/P Pulse O2 O2 Flow FiO2 Mean Ox Delivery Rate 01/26 0655 98.6 79 20 110/70 98 Room Air 01/25 2233 98.9 91 20 144/74 98 Room Air 01/25 1420 98.5 95 20 122/70 93 Room Air Intake & Output 01/26 1600 01/26 0800 01/26 0000 Intake Total 800.8 981.2 Output Total Balance 800.8 981.2 Intake, IV 440.8 381.2 Intake, Oral 360 600 Number 1 Bowel Movements Patient 223 lb 227 lb Weight Weight Standing Scale Measurement Method Laboratory Tests 01/26 01/25 01/25 0510 2215 1330 Chemistry Sodium (137 - 145 mmol/L) 138 Potassium (3.5 - 5.1 mmol/L) 4.3 Chloride (98 - 107 mmol/L) 104 Carbon Dioxide (22 - 30 mmol/L) 26 Anion Gap (5 - 16) 8 BUN (7 - 17 mg/dL) 20 H Creatinine (0.5 - 1.0 mg/dL) 0.6 Estimated GFR (>60 ml/min) > 60 BUN/Creatinine Ratio (7 - 25 %) 33.3 H Coagulation APTT (25 - 37 SEC) 56 H 94 H 30 Hematology CBC w Diff NO MAN DIFF REQ WBC (4.8 - 10.8 /CUMM) 8.6 RBC (4.20 - 5.40 /CUMM) 3.96 L Hgb (12.0 - 16.0 G/DL) 11.0 L Hct (37 - 47 %) 33.7 L MCV (81.0 - 99.0 FL) 85.2 MCH (27.0 - 31.0 PG) 27.8 MCHC (33.0 - 37.0 G/DL) 32.6 L RDW (11.5 - 14.5 %) 13.7 Plt Count (130 - 400 /CUMM) 449 H MPV (7.4 - 10.4 FL) 7.1 L Gran % (42.2 - 75.2 %) 79.1 H Lymphocytes % (20.5 - 51.1 %) 14.1 L Monocytes % (1.7 - 9.3 %) 5.5 Eosinophils % (0 - 5 %) 0.9 Basophils % (0.0 - 2.0 %) 0.4 Absolute Granulocytes (1.4 - 6.5 /CUMM) 6.8 H Absolute Lymphocytes (1.2 - 3.4 /CUMM) 1.2 Absolute Monocytes (0.10 - 0.60 /CUMM) 0.5 Absolute Eosinophils (0.0 - 0.7 /CUMM) 0.1 Absolute Basophils (0.0 - 0.2 /CUMM) 0 01/25 01/25 01/24 0628 0107 1832 Chemistry Sodium (137 - 145 mmol/L) 138 Potassium (3.5 - 5.1 mmol/L) 4.8 Chloride (98 - 107 mmol/L) 107 Carbon Dioxide (22 - 30 mmol/L) 23 Anion Gap (5 - 16) 8 BUN (7 - 17 mg/dL) 27 H Creatinine (0.5 - 1.0 mg/dL) 0.6 Estimated GFR (>60 ml/min) > 60 BUN/Creatinine Ratio (7 - 25 %) 45.0 H Lactic Acid Cancelled Coagulation APTT (25 - 37 SEC) 69 H Hematology CBC w Diff NO MAN DIFF REQ WBC (4.8 - 10.8 /CUMM) 9.8 RBC (4.20 - 5.40 /CUMM) 4.09 L Hgb (12.0 - 16.0 G/DL) 11.3 L Hct (37 - 47 %) 34.9 L MCV (81.0 - 99.0 FL) 85.4 MCH (27.0 - 31.0 PG) 27.7 MCHC (33.0 - 37.0 G/DL) 32.4 L RDW (11.5 - 14.5 %) 14.4 Plt Count (130 - 400 /CUMM) 477 H MPV (7.4 - 10.4 FL) 7.7 Gran % (42.2 - 75.2 %) 78.4 H Lymphocytes % (20.5 - 51.1 %) 15.4 L Monocytes % (1.7 - 9.3 %) 5.0 Eosinophils % (0 - 5 %) 1.0 Basophils % (0.0 - 2.0 %) 0.2 Absolute Granulocytes (1.4 - 6.5 /CUMM) 7.7 H Absolute Lymphocytes (1.2 - 3.4 /CUMM) 1.5 Absolute Monocytes (0.10 - 0.60 /CUMM) 0.5 Absolute Eosinophils (0.0 - 0.7 /CUMM) 0.1 Absolute Basophils (0.0 - 0.2 /CUMM) 0 01/24 01/24 1555 1555 Chemistry Sodium (137 - 145 mmol/L) 141 Potassium (3.5 - 5.1 mmol/L) 4.6 Chloride (98 - 107 mmol/L) 105 Carbon Dioxide (22 - 30 mmol/L) 25 Anion Gap (5 - 16) 11 BUN (7 - 17 mg/dL) 43 H Creatinine (0.5 - 1.0 mg/dL) 0.9 Estimated GFR (>60 ml/min) > 60 BUN/Creatinine Ratio (7 - 25 %) 47.8 H Glucose (65 - 99 mg/dL) 141 H Lactic Acid (0.7 - 2.1 mmol/L) 1.3 Calcium (8.4 - 10.2 mg/dL) 10.2 Total Bilirubin (0.2 - 1.3 mg/dL) 0.3 AST (14 - 36 U/L) 17 ALT (9 - 52 U/L) 49 Alkaline Phosphatase (<127 U/L) 155 H Total Protein (6.3 - 8.2 g/dL) 7.2 Albumin (3.5 - 5.0 g/dL) 3.8 Globulin (1.9 - 4.2 gm/dL) 3.4 Albumin/Globulin Ratio (1.1 - 2.2 %) 1.1 Coagulation PT (9.4 - 12.5 SEC) 12.3 INR (0.90 - 1.19) 1.13 APTT (25 - 37 SEC) 35 Hematology CBC w Diff NO MAN DIFF REQ WBC (4.8 - 10.8 /CUMM) 11.4 H RBC (4.20 - 5.40 /CUMM) 4.72 Hgb (12.0 - 16.0 G/DL) 13.2 Hct (37 - 47 %) 40.4 MCV (81.0 - 99.0 FL) 85.6 MCH (27.0 - 31.0 PG) 27.9 MCHC (33.0 - 37.0 G/DL) 32.6 L RDW (11.5 - 14.5 %) 14.6 H Plt Count (130 - 400 /CUMM) 573 H MPV (7.4 - 10.4 FL) 7.5 Gran % (42.2 - 75.2 %) 86.9 H Lymphocytes % (20.5 - 51.1 %) 10.5 L Monocytes % (1.7 - 9.3 %) 1.6 L Eosinophils % (0 - 5 %) 0.8 Basophils % (0.0 - 2.0 %) 0.2 Absolute Granulocytes (1.4 - 6.5 /CUMM) 9.9 H Absolute Lymphocytes (1.2 - 3.4 /CUMM) 1.2 Absolute Monocytes (0.10 - 0.60 /CUMM) 0.2 Absolute Eosinophils (0.0 - 0.7 /CUMM) 0.1 Absolute Basophils (0.0 - 0.2 /CUMM) 0 Serology Lyme Disease Screen (() index) <0.90 Lyme Disease Antibody Cancelled Microbiology Date/Time Procedure - Status Source Growth 01/24 1555 Blood Culture - RES BLOOD 01/24 1542 Blood Culture - RES BLOOD Impression/Plan Impression/Plan Impression/Plan: Improving Pupils react extraocular movements intact Chest decreased breath sounds heart S1-S2 was heard abdominal exam obese nontender extremity bilateral lower extremity mild edema, IMPRESSION: - No evidence of pulmonary embolism. - Mild thickening of bronchial noriega in both lungs is nonspecific. Query if there is history of cigarette smoking, asthma or bronchitis. No pneumonia. - Small pulmonary nodules of < 0.3 cm size. Follow-up is not required in a low-risk patient. However, follow-up may be considered in 12 months for a high risk patient. DICTATED BY: Moshe Strong MD DATE/TIME DICTATED:01/25/18 / 1434 IMPRESSION This is a lady with history of diabetes, hypertension, morbid obesity with recent weight loss, stage I breast cancer estrogen receptor positive on anastrozole, prior history of pneumonia and empyema in 2006 now stable, recent significant sepsis with fever 104 now with partial response to by mouth antibiotics with * Significant cellulitis of both lower extremity more in the right than the left with leukocytosis, bandemia. Patient failed outpatient/ improving * Lower extremity DVT which is acute in the left lower extremity. Patient is on anastrozole which may be the precipitating factor. Will consider noac in am * Reactive thrombocytosis needs follow-up/ improving * Diabetes on oral hypoglycemic * Resolved - Mild dehydration with elevated BUN now on IV fluids * Recent polyarthritis which seems to be better. She may have had reactive arthritis. No evidence suggestive of tick borne illness but patient did seem to have response to doxycycline. RECOMMENDATION Stable wishes to go home OK to dc on augmentin bid for seven days DC on xeralto 15 bid for 21 days and then 20 qd after that (ask out pt pharmacy to see what med is covered, if xeralto is not covered, use eloquis DVT dose) Resume out pt meds Ok to dc doxy ONly tylenol for pain and no nsaids and pt is aware To see me next week
[2018-01-26 13:09] LABS: PTT 88 SEC (25-37)
[2018-01-26] MEDS ORDERED: AUGMENTIN 875-1 EACH PO ×2 (13:09→14:06)
[2018-01-26] MEDS ORDERED: XARELTO15 M1 PO ×3 (13:15→14:13)
[2018-01-26] MEDS ORDERED: XARELTO20 M2 PO ×3 (13:15→14:13)
[2018-01-26 13:51] VITALS: BP 120/70
[2018-01-26] MEDS ORDERED: LISINOPRIL-HCT1 EACH PO (14:06)
== END 2018-01-26 15:55 | DRG 300 ==
LOC: ERH 15:10 → ERHI 18:45 → 2NA 18:45 → ENRESERV 22:14 → ENTRNSPT 22:50 → 2NA 22:54 → CMPTRNSPT 01-25 07:18 → ENPENDDIS 01-26 14:08 → ENTRNSPT 01-26 15:28 → EDTRNSPT 01-26 15:51 → EDTRNSPTSTS 01-26 15:51 → 2NA 01-26 15:55 → CMPTRNSPT 01-26 15:55
PROVIDERS: Internal Medicine Pulmonary Disease; Physical Medicine & Rehabilitation Pain Medicine; Physician Assistant; Student in an Organized Health Care Education/Training Program
DX: I82.442 Acute embolism and thrombosis of left tibial vein (principal); L03.115 Cellulitis of right lower limb; A69.20 Lyme disease, unspecified; M02.30 Reiter's disease, unspecified site; E66.01 Morbid (severe) obesity due to excess calories; E11.9 Type 2 diabetes mellitus without complications; Z79.84 Long term (current) use of oral hypoglycemic drugs; C50.919 Malignant neoplasm of unspecified site of unspecified female breast; D47.3 Essential (hemorrhagic) thrombocythemia; E86.0 Dehydration; Z68.39 Body mass index [BMI] 39.0-39.9, adult; I10 Essential (primary) hypertension; E78.5 Hyperlipidemia, unspecified; Z85.3 Personal history of malignant neoplasm of breast; Z92.21 Personal history of antineoplastic chemotherapy; Z92.3 Personal history of irradiation; Z17.0 Estrogen receptor positive status [ER+]
CPT/HCPCS: 2NASP; 86618; 87476; 36592; 73610-RT; 82436; 87040; J0131; J1644; J3490; Q2036